=== PATIENT | male | born 2000 | race Caucasian/White ===

== ENCOUNTER 2025-05-14 17:01 | Emergency (ER) | payer MEDICAID, OTHER ==
[~2025-05-14] VITALS: Ht 188 cm; Wt 94.3 kg
[2025-05-14 17:16] VITALS: BP 164/80; TEMP 98.4
[2025-05-14] MEDS ORDERED: IBUP-1490 PO (18:59)
[2025-05-14] MEDS ORDERED: LIDO30AD10 TP (18:59)
[2025-05-14] MEDS ORDERED: METH-649 PO (18:59)
[2025-05-14] MEDS ORDERED: ACET325C7 PO (18:59)
[2025-05-14] MEDS ORDERED: KETOROLAC TROMETHAMINE 15 MG/ML VIAL ONE (19:06)
[2025-05-14] MEDS: KETOROLAC TROMETHAMINE 15 MG/ML VIAL IM ONE (19:10)
[2025-05-14 19:11] VITALS: O2SAT 100
== END 2025-05-14 19:25 | disposition home or self-care (01) ==
LOC: ER 17:20
DX: M54.2 Cervicalgia (principal); M54.9 Dorsalgia, unspecified; I10 Essential (primary) hypertension; V43.52XA Car driver injured in collision with other type car in traffic accident, initial encounter; Y93.89 Activity, other specified; Y92.410 Unspecified street and highway as the place of occurrence of the external cause; Y99.9 Unspecified external cause status
CPT/HCPCS: 99284; 96372; 72040; 72100; J1885